=== PATIENT | male | born 1980 | race African-American/Black ===

== ENCOUNTER 2016-10-20 10:15 | Emergency (ER) | payer MEDICAID ==
[~2016-10-20] VITALS: Ht 175.3 cm; Wt 93.0 kg
--- NOTE | 2016-10-20 10:40 | Emergency Room Report ---
See Addendum History of Present Illness Time Seen by 1022 Presenting Problem in Triage Pt arrived:Walked Presenting Problem:PELVIC PAIN FOR 5-6 DAYS. SHARP PAIN IN SUPRAPUBIC AREA. CONSTANT, CAN FEEL IT MORE WHEN TRYING TO BEND. DENIES DYSURIA. Onset of symptoms date/time:10/14/16 or onset unknown for: Treatment Prior to Arrival: ALCOHOLISM WORKER Provided by: Sepsis Risk Assessment: Temp: 97.7 B/P: 145/86 MAP: 105 Pulse: 84 Resp: 20 Recent fever? N Clinical Suspician of Infection? N Mental Status: 1 - Regular (Normal Baseline) Sepsis Risk:Low Sepsis Risk Have you (or family members/close friends) recently traveled outside the [place]? N If Yes, where/when: Have you had exposure to infectious disease within the past month? TB? Other? Specify: Comment Patient complains of lower midline abdominal pain in the suprapubic area for 5-6 days. He has a slight backache. The pain worsens when he goes from laying to sitting position or bends over to tie his shoes. He thought he might be constipated and uses laxatives, however despite having bowel movements the pain has not gone away. He denies dysuria. He denies scrotal pain or swelling. No penile discharge. No hematuria. No fever. ALLERGIES Coded Allergies: No Known Allergies (10/20/16) History Medical History General CAD? No Angina: No FL: No Hypertension? No Hyperlipidemia? No CHF? No DVT? No PE? No COPD? No Asthma? No Anemia? No GERD? No Gastric ulcers? No GI Bleed? No Hernia? No Thyroid Problems? No Hypothyroidism? No CVA? No Seizures? No Diabetes? No Renal Insuffiency? No End Stage Renal Disease? No UTI? No Stones? No BPH? No GB Disease: No Nephritic Syndrome? No Asplenia? No Hepatitis? No Sickle Cell Disease? No Arthritis? No Migraines? No Cataracts? No Glaucoma? No MRSA? No HIV? No TB? No Anxiety? No Depression? No Cancer? No Immunization Hx DT/Tetanus 5-10 Years Ago Surgical Hx Previous Surgery?N Social History Smoking Hx Smoker: Current Every Day Smoker Tobacco: Yes Type Cigarettes Packs/day < 1 Pack Alcohol Alcohol: No Review of Systems All Other Systems Reviewed and Negative Constitutional denies fever Gastrointestinal abdominal pain, denies diarrhea, denies vomiting Genitourinary denies: dysuria, frequency, hematuria. Musculoskeletal back pain Physical Exam Vital Signs Vital Signs Date Time Temp Pulse Resp B/P Pulse O2 O2 Flow FiO2 Ox Delivery Rate 10/20 1031 97.7 84 20 145/86 100 General Appearance normal appearance, WD/WN Eye Exam - bilateral eye normal exam, bilateral eye PERRL, bilateral eye EOMI Ear, Nose, Throat hearing grossly normal, normal ENT inspection Neck normal inspection, non-tender, supple, full range of motion Respiratory Status Yes: trachea midline, chest symmetrical, non tender chest. No: respiratory distress. Lung Sounds bilateral: normal breath sounds, lungs clear. Cardiovascular normal exam, regular rate/rhythm, no peripheral edema, no gallop, no JVD, no murmur, no rub, normal peripheral pulses Peripheral Pulses Pulses normal Yes Gastrointestinal normal bowel sounds, soft, no organomegaly, no guarding, no rebound, tenderness (lower abdominal midline only) Back normal inspection, no CVA tenderness, no vertebral tenderness Extremities non-tender, normal range of motion, normal inspection Male Genitalia normal genitalia, normal prostate, no hernia Neurologic alert, pot pusher II-XII nml as tested, normal exam, oriented x 3 Mental status normal mood/affect Skin intact, normal color, warm/dry Medical Decision Making LABS/Meds/Orders Pt receiving controlled substance in ED? No Results/Orders Laboratory Tests 10/20/16 1028: Sodium 140, Potassium 3.6, Chloride 103, Carbon Dioxide 29, BUN 11, Creatinine 1.0, Estimated Creat Clear 133, Estimated GFR (MDRD) 84, Glucose 69 L, Calcium 8.8, Total Bilirubin 0.3, AST 76 H, ALT 183 H, Alkaline Phosphatase 59, Total Protein 8.2, Albumin 4.0, Globulin 4.2 H, Albumin/Globulin Ratio 1.0 L, WBC 5.4, RBC 5.02, Hgb 14.2, Hct 44.2, MCV 88.2, RDW 13.2, Plt Count 203, MPV 6.0 L , Gran % 37.7, Gran # 2.0, Total Counted 100, Lymphocytes % 51.8 H, Monocytes % 8.1, Eosinophils % 1.7, Basophils % 0.6, Neutrophils 47, Lymphocytes (Manual) 51 H, Lymphocytes # 2.8, Monocytes (Manual) 1 L, Monocytes # 0.4, Eosinophils # 0.1, Eosinophils # (Manual) 1, Basophils # 0.0, RBC/WBC/PLT Morphology NORMAL, Platelet Estimate NORMAL, PUBS MCHC 32.0, MCH 28.2 10/20/16 1021: Urine Color YELLOW, Urine Appearance CLEAR, Urine pH 6.0, Ur Specific [place] 1.020, Urine Protein NEGATIVE, Urine Ketones NEGATIVE, Urine Blood NEGATIVE, Urine Nitrate NEGATIVE, Urine Bilirubin NEGATIVE, Urine Urobilinogen 0.2, Ur Leukocyte Esterase NEGATIVE, Urine Bacteria TRACE, Urine Glucose NEGATIVE Current Medication Orders Sig/Mak Start time Last Medication Dose Route Stop Time Status Admin Iopamidol 75 ML ONCE ONE 10/20 1145 DC 10/20 IV 10/20 1146 1138 Sodium Chloride 10 ML PRN PRN 10/20 1145 AC 10/20 IV 10/20 1308 1138 Sodium Chloride 10 ML PRN PRN 10/20 1045 AC IV 10/21 1045 Orders Procedure Date/time Status DIET-NOTHING BY MOUTH 10/[address] ABD/PELVIS REQ 10/20 1045 Complete IV SALINE LOCK 10/20 1045 Active CBC WITH AUTO DIFF 10/20 1045 Complete CHEM 12 PROFILE 10/20 1045 Complete URINALYSIS/COMPLETE 10/20 1038 Complete DIFFERENTIAL-WBC 10/20 1028 Complete XRAY/CT/US XRAY/CT/US CT abdomen, pelvis Comment CT scan interpreted by radiologist: No definite acute intra-abdominal or pelvic pathology. Under distention versus mild thickening of the colon, favor the former. Departure Departure Disposition DC Home or Self Care(routine) Clinical Impression Primary Impression: Lower abdominal pain Secondary Impressions: Elevated liver enzymes Condition STABLE Patient Instructions DI for Abdominal Pain-Adult Additional Instructions You are being provided with a list of physicians available for follow-up of your condition. Please call a physician on this list to arrange a follow-up appointment as soon as possible. Your liver enzymes were elevated. Schedule an appointment with a primary care provider for further follow-up. Additional instructions for ABDOMINAL PAIN: See your physician as soon as possible for further evaluation. Return immediately if worsening abdominal pain, vomiting, shortness of breath, fever, vomiting of blood or abdominal distention. ED Critical Care Critical Care No at 1219
[2016-10-20 10:45] LABS: URINE BILIRUBIN - DIPSTICK NEGATIVE (NEG); URINE BLOOD NEGATIVE (NEG)
[2016-10-20 10:51] LABS: HEMOGLOBIN 14.2 g/dL (14.1-18.0); LYMPH # 2.8 K/mm3 (0.7-4.5); LYMPH % 51.8 % (10-50)
[2016-10-20 11:25] LABS: NEUTROPHILS 47 % (42-76)
--- NOTE | 2016-10-20 12:00 | RADIOLOGY REPORT PS360 ---
CT ABD PELVIS W/ CONTRAST CLINICAL INDICATION: LOWER MIDLINE ABD PAIN ORDERING PHYSICIAN: Luis Engel MD PATIENT AGE: 36 years COMPARISON: None TECHNIQUE: Axial images obtained with sagittal and coronal reformats. PROCEDURE: Oral Contrast: None IV Contrast: 75 mL Isovue-370. FINDINGS: The lung bases are clear. The liver, gallbladder, spleen, pancreas, and adrenal glands have an unremarkable appearance. No renal calculi or retained colonic feces in the rectosigmoid region. No intestinal obstruction or free air. No abnormal fluid collection or focal inflammatory change mild thickening versus underdistention of the colon. No evidence of diverticulitis. No acute bony anomalies IMPRESSION: 1. No definite acute intra-abdominal or pelvic pathology. 2. Under distention versus mild thickening of the colon, favor the former.
[2016-10-20 12:24] VITALS: BP 145/86
== END 2016-10-20 12:29 | disposition home or self-care (01) ==
LOC: ER 10:15
PROVIDERS: Emergency Medicine
DX: R10.30 Lower abdominal pain, unspecified (principal); R94.5 Abnormal results of liver function studies
CPT/HCPCS: Q9967

== ENCOUNTER → 2017-05-24 | Outpatient (CLI) | payer MEDICAID ==
[~2017-05-24] MED LIST: CIPROFLOXACIN500 M2; FLOMAX 0.4MG C0.4 MG
[2017-05-24 09:18] LABS: LYMPH # 2.5 K/mm3 (0.7-4.5); LYMPH % 51.7 % (10-50)
[2017-05-24 09:20] LABS: URINE BILIRUBIN - DIPSTICK NEGATIVE (NEG); URINE BLOOD NEGATIVE (NEG)
[2017-05-24 09:52] LABS: BUN 11 mg/dL (7-18)
[2017-05-24 09:54] LABS: GFR (ESTIMATED) 95 ML/MIN (>60)
[2017-05-24 10:41] LABS: URINE SQUAMOUS CELLS OCC #/hpf (OCC)
--- NOTE | 2017-05-24 10:58 | RADIOLOGY REPORT PS360 ---
CT ABD PELVIS W/WO CONTRAST INDICATION: LOWER ABD PAIN ORDERING PHYSICIAN: Onelia Camargo APRN PATIENT AGE: 36 years COMPARISON: 10/20/2016 TECHNIQUE: Axial images are obtained without and with 75 mL Isovue-370. Oral Redicat also utilized. Sagittal and coronal reformatted images are reviewed as well. FINDINGS: The lung bases are clear. Liver, gallbladder, spleen, adrenal glands, and pancreas have an unremarkable CT appearance. No renal calculi or hydronephrosis. No obvious renal mass. No ureteral calculus. Urinary bladder has an unremarkable appearance. No intestinal obstruction or free air. Unremarkable appendix. No evidence of diverticulitis. The jejunal small bowel loops appears slightly thickened. No air-fluid levels. No pelvic mass or abnormal fluid collection. No acute bony anomalies. IMPRESSION: 1. There is mild thickening of the jejunum suggesting enteritis. 2. Otherwise negative CT abdomen pelvis IMPRESSION:
== END ==
LOC: RAD 08:57
PROVIDERS: Nurse Practitioner Family
DX: R10.30 Lower abdominal pain, unspecified (principal); N40.0 Benign prostatic hyperplasia without lower urinary tract symptoms
CPT/HCPCS: G0103; Q9967